=== PATIENT | male | born 1970 | race Two or more races ===

== ENCOUNTER 2025-05-14 07:55 | Day surgery (SDC) | payer MEDICAID, SELFPAY ==
[2025-05-08 09:28] VITALS: BMI 26.6
[2025-05-08 09:40] VITALS: BMI 26.6
[2025-05-08 10:31] LABS: Basophils # (Auto) 0.0 Thou/mm3 (0.0-0.2); Basophils % (Auto) 0 % (0-2.5); Eosinophils # (Auto) 0.1 Thou/mm3 (0.0-0.5); Eosinophils % (Auto) 2 % (0-10); Hematocrit 44.8 % (41.0-53.0); Hemoglobin 15.8 g/dL (13.5-16.0); Immature Granulocytes Auto 0.00 Thou/mm3 (0.00-0.00); Lymphocytes # (Auto) 1.7 Thou/mm3 (1.0-4.8); Lymphocytes % (Auto) 42 % (10-50); Mean Corpuscular HGB Conc 35.3 g/dl (31.0-37.0); Mean Corpuscular Hemoglobin 31.2 pg (25.0-35.0); Mean Corpuscular Volume 89 fL (80-100); Monocytes # (Auto) 0.3 Thou/mm3 (0.0-0.8); Monocytes % (Auto) 8 % (0-12); Neutrophils # (Auto) 1.9 Thou/mm3 (1.8-7.7); Neutrophils % (Auto) 48 % (37-80); Nucleated Red Blood Cell # 0.00 Thou/mm3 (0.00-0.00); Nucleated Red Blood Cell % 0 /100 WBC (0); Platelet Count 223 Thou/mm3 (140-440); RDW Standard Deviation 36.6 fL (35.1-43.9); Red Blood Count 5.06 Miln/mm3 (4.50-5.90); White Blood Count 4.0 Thou/mm3 (3.8-10.6)
[2025-05-08 10:44] LABS: INR 1.1 (0.9-1.3); Partial Thromboplastin Time 29.6 Seconds (22.0-36.0); Prothrombin Time 11.2 Seconds (9.0-12.2)
[2025-05-08 10:49] LABS: Alanine Aminotransferase 38 U/L (10-49); Albumin, Serum 5.0 gm/dL (3.5-5.0); Albumin/Globulin Ratio 1.8 (1.2-2.2); Alkaline Phosphatase 75 U/L (46-116); Anion Gap 10 (7-16); Aspartate Amino Transferase 31 U/L (0-34); BUN/Creatinine Ratio 11 Ratio (12-20); Bilirubin,Total 0.5 mg/dL (0.3-1.2); Blood Urea Nitrogen 9 mg/dL (9-23); Calcium 9.2 mg/dL (8.3-10.6); Calcium (Corrected) 9.2 mg/dL (8.5-10.1); Carbon Dioxide 26.3 mMol/L (20.0-31.0); Chloride 105 mMol/L (98-107); Creatinine (Component) 0.8 mg/dL (0.6-1.3); Estimated Creatinine Clearance 90.4 mL/min (>60); Globulin 2.8 gm/dL (2.3-3.5); Glucose 116 mg/dL (74-106); Osmolality,Calculated 280 (275-295); Potassium 4.1 mMol/L (3.4-5.1); Sodium 141 mMol/L (136-145); Total Protein 7.8 gm/dL (5.7-8.2); eGFR > 60 See Note
[2025-05-14] VITALS (9 sets, daily range): BP systolic 122–160; BP diastolic 80–109; PULSE 79–94; RESP 16–20; TEMP 36.2–36.5; O2SAT 93–97; BMI 26.2
--- NOTE | 2025-05-14 11:20 | SUR.PHASEI ---
1120: Pt. AAOx4,vitals stable, breathing unlabored, no complaint of pain or nausea, dressing to right lower ABD CDI, no active bleed noted, report received from MD Le and Yazmin ISAACS.
--- NOTE | 2025-05-14 11:49 | PD.SUROPNT ---
Date of Procedure 05/14/25 Pre Op Diagnosis Symptomatic right inguinal hernia Post Op Diagnosis Same, indirect in type Procedure Repair of the indirect inguinal hernia with high ligation of the sac and placement of 2 x 4 Marlex mesh on the floor Findings Patient is found to have large sac which was buried in the right cord structure but no weakness in the floor of the inguinal canal Procedure Description After the patient was given general endotracheal anesthesia is lower abdomen was prepped with chloreprep solution and draped. Standard right groin incision was made in the external oblique was reached. Incision was made over the external oblique and the patient was found to have a large sac next to the cord structures. The cord structures were encircled around a [place] drain and the sac was easily . It was opened and was found to contain no structures. Patient had a large opening in this hernial sac in the mouth of the internal ring was narrow. There is some fatty tissue attached to the sac making it thick.. I suture ligated this with 2-0 chromic and then divided. Another 2-0 chromic suture ligation was used to prevent any slippage of the previous suture. Then I palpated the floor of the inguinal canal which appeared to be strong. I placed a 2 x 4 Marlex mesh and attached it medially to the pubic tubercle and laterally it was tucked underneath the external oblique after crossing the cord structures. I placed one stitch of Prolene lateral to the cord structures. Then external oblique was closed with running 2-0 Vicryl and subcutaneous tissues was approximated with 30 plain I injected half percent Marcaine with epinephrine for analgesia and the skin was closed with 4-0 Monocryl. Dressing was applied with Adaptic and 4 x 4 and the patient tolerated the procedure well and left operating room in stable condition. Anesthesia [employer]plants Implants comments: 2 x 4 Marlex mesh on the right groin Pathology / specimen None IVF Infused 800 Estimated Blood Loss 20 Surgeon Stephon Collado MD Surgical Staff Operation Date: 05/14/25 10:15 Case Staff Anesthesiologist: Lito Le RN First Assistant: Barbie Vences RNdigital marketing consultant: Cayla Hatfield
[2025-05-14] MEDS: fentaNYL CIT INJ 50 mCg/ML AMP 2ML 25 MCG IVP ×2 (11:52→12:03)
--- NOTE | 2025-05-14 12:06 | SUR.PHASEII ---
1206: report given to Kimberly ISAACS to resume care. Pt. AAOx4, vitals stable, breathing unlabored, no complaint of pain or nausea, dressing CDI.
--- NOTE | 2025-05-14 12:25 | SUR.PHASEII ---
Pt. meets criteria for discharge, VSS, no c/o pain or nausea at this time, dressing to right groin CDI, discharge instructions provided to pt. and pt.'s with use of interpreter translator services, verbalized understanding, IV discontinued without complications, pt. escorted via w/c with all of belongings to vehicle by staff.
== END 2025-05-14 12:25 | disposition home or self-care (01) ==
PROVIDERS: Referring Provider Surgery; Visit Provider Surgery
PROC: (CPT 49505; principal; 2025-05-14 10:00)
DX: K40.90 Unilateral inguinal hernia, without obstruction or gangrene, not specified as recurrent (principal)
CPT/HCPCS: 49505; 36415; 80053; 85025; 85610; 85730; A4649; C1781; J0131; J1100; J1885; J2250; J2405; J2704; J3010; J3490